=== PATIENT | male | born 1980 | race Two or more races ===

== ENCOUNTER 2025-09-16 11:31 | Emergency (ER) | payer OTHER ==
[~2025-09-16] VITALS: Ht 172.7 cm; Wt 84.4 kg
[~2025-09-16 11:31] MED LIST: AVELOX ABC PAC400 MG PO
[2025-09-16 12:59] VITALS: BP 100/66; O2SAT 98
[2025-09-16] MEDS ORDERED: LIDOCAINE HCL 1% 2ML VIAL IJ ONE (14:15)
[2025-09-16] MEDS ORDERED: LIDOCAINE HCL 1% 10ML VIAL ONE (14:22)
[2025-09-16] MEDS ORDERED: CEFTRIAXONE SODIUM 1,000 MG VIAL IM ONE (15:00)
[2025-09-16] MEDS ORDERED: CEFTRIAXONE SODIUM 1,000 MG VIAL ONE (15:12)
== END 2025-09-16 21:21 | disposition home or self-care (01) ==
LOC: ER 11:32
DX: S61.022A Laceration with foreign body of left thumb without damage to nail, initial encounter (principal); W25.XXXA Contact with sharp glass, initial encounter; W45.8XXA Other foreign body or object entering through skin, initial encounter; Y93.89 Activity, other specified; Y92.89 Other specified places as the place of occurrence of the external cause